=== PATIENT | female | born 1935 | race Asian ===

== ENCOUNTER 2018-06-20 12:43 | Emergency (ER) | payer MEDICAID ==
[~2018-06-20] VITALS: Ht 152.4 cm; Wt 60.0 kg
[2018-06-20] MEDS ORDERED: ACETAMINOPHEN 325MG TABLET PO ONE (13:15)
[2018-06-20] MEDS ORDERED: BACITRACIN ZINC OINT UDPKT TOP ONE (13:30)
[2018-06-20] MEDS ORDERED: LIDOCAINE 1%/EPI 1:100,000 10 ML VIAL IJ ONE (13:30)
[2018-06-20] MEDS ORDERED: TETANUS, DIPHTHERIA, PERTUSSIS VAC/PF 0.5ML (>7YR OLD) IM ONE (16:00)
[2018-06-20 16:14] VITALS: BP 123/71
== END 2018-06-20 17:19 | disposition home or self-care (01) ==
LOC: ER 12:43
DX: S52.501A Unspecified fracture of the lower end of right radius, initial encounter for closed fracture (principal); S01.111A Laceration without foreign body of right eyelid and periocular area, initial encounter; I10 Essential (primary) hypertension; M85.80 Other specified disorders of bone density and structure, unspecified site; W01.0XXA Fall on same level from slipping, tripping and stumbling without subsequent striking against object, initial encounter; Y93.89 Activity, other specified; Y92.488 Other paved roadways as the place of occurrence of the external cause
CPT/HCPCS: 29125; 70450; 73110; 73130; 90471; 90715; 99284; J3490; A4565

== ENCOUNTER → 2018-06-28 | Outpatient (CLI) | payer MEDICAID | END | disposition home or self-care (01) | LOC: RAD 07:26 | PROVIDERS: ATTEND Internal Medicine | DX: M85.88 Other specified disorders of bone density and structure, other site (principal) | CPT/HCPCS: 73110 ==

== ENCOUNTER → 2019-09-26 | Outpatient (CLI) | payer MEDICAID ==
[~2019-09-26] MED LIST: AMLO5TAB4 PO; ASPI-1497 MT; ATOR20TA MT; METO-396 MT
[2019-09-26 08:25] LABS: BASOPHILS % 0.5 % (0.0-2.0); HEMATOCRIT. 41.5 % (36.0-48.0); HEMOGLOBIN. 13.9 g/dL (12.0-16.0); MEAN CORPUSCULAR HEMOGLOBIN 29.5 pg (28.0-32.0); MEAN CORPUSCULAR VOLUME 88.2 fL (81.0-99.0); MEAN PLATELET VOLUME 10.8 fl (7.4-10.4); MONOCYTES % 9.4 % (2.0-8.0); NEUTROPHILS % 52.1 % (40.0-76.0); PLATELET 170 x1000/uL (130-400); RED CELL DISTRIBUTION WIDTH 13.7 % (11.6-14.6)
[2019-09-26 08:34] LABS: PARTIAL THROMBOPLASTIN TIME 32.1 sec (23.4-31.0); PROTHROMBIN TIME 10.8 sec (9.6-11.0)
[2019-09-26 08:43] LABS: CHLORIDE 113 mEq/L (98-107)
[2019-09-26 08:50] LABS: LDL CHOLESTEROL 64 mg/dL (5-100)
[2019-09-26 08:53] LABS: HDL CHOLESTEROL 38 mg/dL (40-59)
[2019-09-26 09:56] LABS: T4 FREE 0.81 ng/dL (0.76-1.46)
[2019-09-27 09:09] LABS: VITAMIN D 25-OH 37.1 ng/mL (30.0-100.0)
[2019-09-27 13:06] LABS: ANTI-NUCLEAR ANTIBODIES DIRECT Positive (Negative)
== END | disposition home or self-care (01) ==
LOC: LAB 09-25 08:56
PROVIDERS: ATTEND Internal Medicine Critical Care Medicine
DX: I10 Essential (primary) hypertension (principal); E78.5 Hyperlipidemia, unspecified
CPT/HCPCS: 36415; 80053; 80061; 82306; 84439; 84443; 85025; 86038

== ENCOUNTER 2019-10-07 05:15 | Day surgery (SDC) | payer MEDICAID ==
[~2019-10-07] VITALS: Ht 152.4 cm; Wt 51.7 kg
[2019-10-07] MEDS ORDERED: TROPICAMIDE 1% OPHTH DROPS 15ML RIGHTEYE SCH (06:00)
[2019-10-07] MEDS ORDERED: CYCLOPENTOLATE HCL 1% OPHTH DROPS 2ML RIGHTEYE SCH (06:00)
[2019-10-07] MEDS ORDERED: PHENYLEPHRINE HCL 10% OPHTH DROPS 5ML RIGHTEYE SCH (06:00)
[2019-10-07] MEDS ORDERED: LACTATED RINGERS 1,000 ML IV SCH (06:00)
[2019-10-07] MEDS ORDERED: HYALURONATE SODIUM 10 MG/ML 0.55ML SYRINGE IO ONE ×2 (06:29→07:53)
[2019-10-07] MEDS ORDERED: MIDAZOLAM HCL 2 MG/2 ML VIAL ONE (07:22)
[2019-10-07] MEDS ORDERED: FENTANYL CITRATE/PF 50MCG/ML 2ML VIAL ONE (07:22)
[2019-10-07] MEDS ORDERED: BALANCED SALT IRRIG SOLN COMB1 500ML OP ONE (07:30)
[2019-10-07] MEDS ORDERED: CEFAZOLIN SODIUM 1000MG/VIAL ONE (09:02)
[2019-10-07] MEDS ORDERED: CIPROFLOXACIN 0.3% OPHTH SOLN 2.5ML ONE (10:49)
[2019-10-07] MEDS ORDERED: TETRACAINE 0.5% OPHTH DROPS 4ML ONE (10:49)
[2019-10-07] MEDS ORDERED: BALANCED SALT IRRIG SOLN 15ML ONE (10:49)
[2019-10-07] MEDS ORDERED: NEO/POLYMYX B SULF/DEXAMETH OPHTH OINT 3.5GM ONE (10:49)
[2019-10-07] MEDS ORDERED: PHENYLEPHRINE HCL 10% OPHTH DROPS 5ML ONE (10:49)
[2019-10-07] MEDS ORDERED: TROPICAMIDE 1% OPHTH DROPS 15ML ONE (10:49)
[2019-10-07] MEDS ORDERED: LIDOCAINE HCL/PF 2% 20 MG/ML 10ML VIAL ONE (10:49)
[2019-10-07] MEDS ORDERED: PREDNISOLONE ACETATE 1% OPHTH DROPS 5ML ONE (10:49)
[2019-10-07] MEDS ORDERED: CYCLOPENTOLATE HCL 1% OPHTH DROPS 2ML ONE (10:49)
== END 2019-10-07 09:05 | disposition home or self-care (01) ==
LOC: OR 05:15
PROVIDERS: ATTEND Ophthalmology
DX: H25.89 Other age-related cataract (principal); I10 Essential (primary) hypertension; E78.00 Pure hypercholesterolemia, unspecified; M19.90 Unspecified osteoarthritis, unspecified site; Z79.899 Other long term (current) drug therapy; Z79.82 Long term (current) use of aspirin; Z98.890 Other specified postprocedural states
CPT/HCPCS: 66984; 93005; J0690; J2250; J3010; J3490; V2632

== ENCOUNTER → 2019-11-24 | Emergency (ER) | payer MEDICAID | END | disposition home or self-care (01) | LOC: RAD 07:58 | DX: M25.532 Pain in left wrist (principal); E78.00 Pure hypercholesterolemia, unspecified; I10 Essential (primary) hypertension; W03.XXXA Other fall on same level due to collision with another person, initial encounter; Y93.89 Activity, other specified; Y92.89 Other specified places as the place of occurrence of the external cause; Y99.8 Other external cause status | CPT/HCPCS: 29125; 70160; 73110; 99283 ==

== ENCOUNTER 2019-11-28 11:06 | Outpatient (CLI) | payer MEDICAID | END 2019-12-01 | disposition home or self-care (01) | LOC: EDSTATUS 13:42 → RAD 12-01 07:35 | PROVIDERS: ATTEND Internal Medicine Critical Care Medicine | DX: S52.502A Unspecified fracture of the lower end of left radius, initial encounter for closed fracture (principal); S52.602A Unspecified fracture of lower end of left ulna, initial encounter for closed fracture; X58.XXXA Exposure to other specified factors, initial encounter; Y93.89 Activity, other specified; Y92.89 Other specified places as the place of occurrence of the external cause; Y99.8 Other external cause status | CPT/HCPCS: 73110 ==

== ENCOUNTER 2022-01-27 08:59 | Emergency (ER) | payer MEDICAID ==
[~2022-01-27] VITALS: Ht 172.7 cm; Wt 68.0 kg
[2022-01-28 08:26] VITALS: BP 158/78
[2022-01-28 09:05] LABS: BASOPHILS % 0.4 % (0.0-2.0); EOSINOPHILS % 5.6 % (0.0-5.0); HEMATOCRIT. 39.8 % (36.0-48.0); HEMOGLOBIN. 12.9 g/dL (12.0-16.0); LYMPHOCYTES % 38.3 % (20.0-50.0); MEAN CORPUSCULAR HEMOGLOBIN 28.1 pg (28.0-32.0); MEAN CORPUSCULAR VOLUME 86.6 fL (81.0-99.0); MEAN PLATELET VOLUME 10.3 fl (7.4-10.4); MONOCYTES % 11.3 % (2.0-8.0); NEUTROPHILS % 44.4 % (40.0-76.0); PLATELET 173 x1000/uL (130-400); RED BLOOD CELL COUNT 4.59 mill/uL (4.2-5.4); RED CELL DISTRIBUTION WIDTH 14.4 % (11.6-14.6)
[2022-01-28 09:17] LABS: CHLORIDE 111 mEq/L (98-107)
[2022-01-28 09:34] LABS: HDL CHOLESTEROL 44 mg/dL (40-59); LDL CHOLESTEROL 61 mg/dL (5-100)
[2022-01-28] MEDS ORDERED: FURO-152 MT (11:03)
[2022-01-28] MEDS ORDERED: HYDR-4009 MT (11:03)
[2022-02-02 17:06] LABS: 25-HYDROXY VITAMIN D3 33 ng/mL (.)
== END 2022-01-28 10:30 | disposition left against medical advice (07) ==
LOC: CANPRECLI → EDSTATUS 01-28 07:52 → ER 01-28 07:53 → EDSTATUS 01-28 08:59 → ER 01-28 10:30
DX: I11.0 Hypertensive heart disease with heart failure (principal); I50.30 Unspecified diastolic (congestive) heart failure; M54.50 Low back pain, unspecified; R55 Syncope and collapse
CPT/HCPCS: 36415; 72070; 72100; 72146; 72148; 80053; 80061; 82306; 83036; 84436; 84443; 84480; 85025; 86038; 86141; 93306; 93880; 99285